=== PATIENT | male | born 1980 | race African-American/Black ===

== ENCOUNTER 2016-07-27 11:50 | Emergency (ER) | payer SELFPAY ==
[2016-07-27] MEDS ORDERED: SODIUM CHLORIDE 0.9% 1,000 ML ONE (14:54)
[2016-07-27] MEDS ORDERED: ONDANSETRON 4 MG VIAL ONE (14:54)
[2016-07-27] MEDS ORDERED: ALU/MAG/SIM 30 ML UDC ONE (14:54)
[2016-07-27] MEDS ORDERED: LIDOCAINE 2% VISC 15 ML UDC ONE (14:54)
[2016-07-27] MEDS ORDERED: FAMOTIDINE 20 MG INJ ONE (14:55)
== END 2016-07-27 16:28 | disposition home or self-care (01) ==
LOC: ER 11:50
DX: K21.9 Gastro-esophageal reflux disease without esophagitis (principal)
CPT/HCPCS: 36415; 76705; 80053; 81003; 83690; 85025; 86677; 96361; 96374; 96375